=== PATIENT | female | born 1960 | race Caucasian/White ===

== ENCOUNTER 2022-07-11 22:34 | Emergency (ER) | payer OTHER ==
[~2022-07-11] VITALS: Ht 154.9 cm; Wt 77.1 kg
--- NOTE | 2022-07-11 23:01 | NUR ---
Patient walked to ER with steady gait. NAD noted. patient is a/ox4
[2022-07-12] MEDS ORDERED: KETOROLAC TROMETHAMINE 30 MG INJ IVP ONE
[2022-07-12] MEDS ORDERED: IV NS 1000 ML 1,000 ML IV ONE
[2022-07-12] MEDS ORDERED: diphenhydrAMINE 50 MG/1 ML VIAL IV ONE
[2022-07-12] MEDS ORDERED: METOCLOPRAMIDE HCL 10 MG/2 ML VIAL IV ONE
[2022-07-12] MEDS ORDERED: KETOROLAC TROMETHAMINE 30 MG INJ ONE (00:11)
[2022-07-12] MEDS ORDERED: METOCLOPRAMIDE HCL 10 MG/2 ML VIAL ONE (00:11)
[2022-07-12] MEDS ORDERED: diphenhydrAMINE 50 MG/1 ML VIAL ONE (00:11)
[2022-07-12 00:16] LABS: HEMATOCRIT 38.5 % (31.2-41.9); MEAN CORPUSCULAR HEMOGLOBIN 26.6 uug (24.7-32.8); MEAN CORPUSCULAR VOLUME 80.7 fL (75.5-95.3); PLATELET COUNT (AUTO) 254 K/uL (179-408)
[2022-07-12 00:27] LABS: CREATININE 0.6 mg/dL (0.6-1.3); POTASSIUM 3.5 mmol/L (3.5-5.1)
[2022-07-12] MEDS ORDERED: DIPH12.56 PO (01:34)
[2022-07-12] MEDS ORDERED: NAPR-1164 PO (01:34)
[2022-07-12] MEDS ORDERED: METO-295 PO (01:34)
[2022-07-12 02:13] LABS: *BILIRUBIN,URIN NEGATIVE (NEGATIVE); *BLOOD, URINE NEGATIVE (NEGATIVE); *CLARITY,URINE CLEAR (CLEAR); *COLOR,URINE YELLOW (YELLOW); *KETONES,URINE TRACE (NEGATIVE); *UROBILINOGEN,URINE 0.2 E.U./dl (NORMAL); LEUKOCYTE ESTERASE ,URINE NEGATIVE (NEGATIVE); NITRITE, URINE NEGATIVE (NEGATIVE); PH,URINE 7.5 (5.0-8.0); UGLUCOSE NEGATIVE (NEGATIVE)
--- NOTE | 2022-07-12 02:24 | NUR ---
Patient discharged to home in stable condition. Written and verbal after care instructions given. Patient verbalizes understanding of instructions. Stressed follow up or return to ER for worsening s/s. Patient is a/ox4, NAD noted. patient is ambulatory with steady gait, accompanied by her
[2022-07-12 02:25] VITALS: BP 132/72
== END 2022-07-12 02:31 | disposition home or self-care (01) ==
LOC: ER 22:36
DX: G43.909 Migraine, unspecified, not intractable, without status migrainosus (principal); E78.5 Hyperlipidemia, unspecified; E03.9 Hypothyroidism, unspecified
CPT/HCPCS: 36415; 99284; 96374; 96361; 96375; 80048; 81003; 83735; 85025; J1200; J1885; J2765; J7040